=== PATIENT | female | born 1990 | race Caucasian/White ===

== ENCOUNTER 2019-02-10 17:07 | Inpatient (IN) | payer OTHER ==
[~2019-02-10] VITALS: Ht 157.5 cm; Wt 153.3 kg
[2019-02-10 17:23] VITALS: Ht 157.5 cm; Wt 153.3 kg
[2019-02-10 19:48] LABS: CALCIUM 8.5 mg/dL (8.5-10.1); CARBON DIOXIDE 25.2 mmol/L (21-32); CHLORIDE SERUM 103 mmol/L (98-107); CREATININE SERUM 0.7 mg/dL (0.6-1.0); GFR1 > 60 mL/min; GLUCOSE SERUM 90 mg/dL (74-106); POTASSIUM SERUM 3.9 mmol/L (3.5-5.1); SODIUM SERUM 138 mmol/L (136-145)
[2019-02-10 19:52] LABS: ALBUMIN 3.6 g/dL (3.4-5.0); ALKALINE PHOSPHATASE 72 U/L (46-116); ALT/SGPT 22 U/L (14-59); AMYLASE 37 U/L (25-115); AST/SGOT 27 U/L (15-37); BILIRUBIN TOTAL 0.33 mg/dL (0.20-1.00); LIPASE 126 IU/L (73-393)
[2019-02-10 19:54] LABS: PLATELET COUNT 343 x10^3mcL (130-400)
[2019-02-10 19:57] LABS: RED CELL DISTRIBUTION WIDTH 18.1 % (11.5-14.5)
[2019-02-10 20:10] LABS: rbc morphology (normal/abnorm) ABNORMAL (NORMAL)
[2019-02-11] VITALS (7 sets, daily range): BP systolic 96–108; BP diastolic 48–59
[2019-02-11 07:41] LABS: BASOPHIL % 0.7 % (0-2); PLATELET COUNT 275 x10^3mcL (130-400)
[2019-02-11 07:46] LABS: CALCIUM 7.8 mg/dL (8.5-10.1); CARBON DIOXIDE 25.3 mmol/L (21-32); CHLORIDE SERUM 108 mmol/L (98-107); CREATININE SERUM 0.7 mg/dL (0.6-1.0); GFR1 > 60 mL/min; GLUCOSE SERUM 98 mg/dL (74-106); POTASSIUM SERUM 4.2 mmol/L (3.5-5.1); SODIUM SERUM 141 mmol/L (136-145)
[2019-02-11 07:51] LABS: RED CELL DISTRIBUTION WIDTH 21.1 % (11.5-14.5)
[2019-02-11 07:52] LABS: rbc morphology (normal/abnorm) ABNORMAL (NORMAL)
[2019-02-11] MEDS ORDERED: NATURAL IRON65 MG PO (10:01)
== END 2019-02-11 13:30 | disposition home or self-care (01) | DRG 812 ==
LOC: ED 17:07 → MU 22:08
PROVIDERS: Emergency Medicine; ADMIT Internal Medicine Pulmonary Disease
PROC: 30233N1 Transfusion of Nonautologous Red Blood Cells into Peripheral Vein, Percutaneous Approach (ICD-10-PCS; principal; 2019-02-10)
DX: D64.9 Anemia, unspecified (principal); Z68.44 Body mass index [BMI] 60.0-69.9, adult; N92.0 Excessive and frequent menstruation with regular cycle; Z91.018 Allergy to other foods; Z91.013 Allergy to seafood; E66.01 Morbid (severe) obesity due to excess calories; Z71.3 Dietary counseling and surveillance
CPT/HCPCS: G0378; J1885; J2405; J7030; J7050; P9016; Q0163